=== PATIENT | female | born 1980 | race Two or more races ===

== ENCOUNTER 2022-10-26 12:33 | Emergency (ER) | payer OTHER ==
[2022-10-26] MEDS ORDERED: Lidocaine 1% (PF) 30 ML VIAL ONE (13:07)
== END 2022-10-26 14:03 | disposition home or self-care (01) ==
LOC: CSHERS 12:33
DX: S61.412A Laceration without foreign body of left hand, initial encounter (principal); W26.0XXA Contact with knife, initial encounter
CPT/HCPCS: 12001; J2001